=== PATIENT | female | born 1965 | race Caucasian/White ===

== ENCOUNTER → 2020-11-29 | Day surgery (SDC) | payer OTHER ==
[~2020-11-29] VITALS: Ht 162.6 cm; Wt 72.6 kg
[~2020-11-29] MED LIST: CELECOXIB200 MG PO; ESTROGEN PATCH TOP; FLOVENT HFA12 GM INH; GABAPENTIN600 MG PO; GABAPENTIN800 MG PO; MIRALAX17 GM PO; NARCAN4 MG INH; NEURONTIN600 MG PO; OXYCODONE HCL15 M1 PO; OXYCODONE HCL15 MG PO; PROZAC40 MG PO; TIZANIDINE HCL4 MG PO; TRIAMTERENE-HC1 EAC1 PO; VOLTAREN100 GM TOP; WELLBUTRIN XL300 MG PO; ZANAFLEX4 MG PO; ZOFRAN4 MG PO
== END | disposition home or self-care (01) ==
LOC: FAS 07:30
DX: M16.11 Unilateral primary osteoarthritis, right hip (principal); M70.61 Trochanteric bursitis, right hip; J44.9 Chronic obstructive pulmonary disease, unspecified; I10 Essential (primary) hypertension; Z87.891 Personal history of nicotine dependence; Z91.018 Allergy to other foods; Z79.891 Long term (current) use of opiate analgesic; Z79.899 Other long term (current) drug therapy
CPT/HCPCS: 76000; J1040; J1885; J2250; J2704; J7120; Q9967